=== PATIENT | female | born 1960 | race Caucasian/White ===

== ENCOUNTER → 2022-01-28 | Outpatient (CLI) | payer BC, MEDICARE ==
[~2022-01-28] VITALS: Ht 175.3 cm; Wt 113.6 kg
[~2022-01-28] MED LIST: LIDOCAINE 1% INJ 50 ML (XYLOCAINE) VIAL IJ ONE
--- NOTE | 2022-01-28 11:07 | Diagnostic Imaging Report ---
INDICATION: Right breast nodule. Patient presents for ultrasound guided core biopsy. DETAILS OF THE PROCEDURE: The patient was brought to the sonographic suite and placed on the table in the supine position. Ultrasound imaging of the right breast was performed to evaluate for an appropriate entry site. The right breast was then prepped and draped in the usual sterile fashion. A small amount of 1% lidocaine was utilized for local anesthesia. A total of four core biopsies was made of the irregular hypoechoic mass at the 10 o'clock location of the right breast 6 cm from the nipple utilizing a 14-gauge Achieve needle. A marker clip was then deployed. Hemostasis was obtained using manual compression. The patient tolerated the procedure well. IMPRESSION: Successful ultrasound guided core biopsy of the hypoechoic irregular mass at the 10 o'clock location of the right breast 6 cm from the nipple. Pathology results are currently pending. Dictated by: Dictated on workstation # [id number]
--- NOTE | 2022-01-28 11:08 | Diagnostic Imaging Report ---
INDICATION: Right breast nodule. Patient presents for ultrasound guided core biopsy. DETAILS OF THE PROCEDURE: The patient was brought to the sonographic suite and placed on the table in the supine position. Ultrasound imaging of the right breast was performed to evaluate for an appropriate entry site. The right breast was then prepped and draped in the usual sterile fashion. A small amount of 1% lidocaine was utilized for local anesthesia. A total of four core biopsies was made through the irregular, hypoechoic mass at the 9 o'clock location of the right breast 7 cm from the nipple utilizing a 14-gauge Achieve needle. A marker clip was deployed. Hemostasis was obtained using manual compression. The patient tolerated the procedure well and was sent for post procedure mammography in satisfactory condition. IMPRESSION: Successful ultrasound-guided core biopsy of the irregular mass at the 9 o'clock location of the right breast 7 cm from the nipple. Pathology results are currently pending. Dictated by: Dictated on workstation # [id number]
--- NOTE | 2022-01-28 12:29 | Diagnostic Imaging Report ---
INDICATION: Right breast masses. Patient is status post ultrasound-guided biopsy. FINDINGS: Unilateral right exaggerated CC and lateral medial views of the breast were obtained after the patient underwent an ultrasound-guided biopsy. The patient underwent biopsy at both the 10 o'clock and 9 o'clock positions. Only a single marker clip is identified on this study in the upper and outer aspect of the right breast. This marker clip represents the lesion that was reported at the 9 o'clock location. The 10 o'clock lesion does not appear to contain a marker clip. IMPRESSION: There is a marker clip in the outer right breast which appears to represent the marker clip from the 9 o'clock lesion. The 10 o'clock lesion that was biopsied does not definitely demonstrate a marker clip. Dictated by: Dictated on workstation # [id number]
== END ==
LOC: RAD 08:45
PROVIDERS: ATTEND Surgery
DX: N63.15 Unspecified lump in the right breast, overlapping quadrants (principal); N63.11 Unspecified lump in the right breast, upper outer quadrant
CPT/HCPCS: 19083; 19084; 77065; A4648; G0279

== ENCOUNTER → 2022-02-04 | Outpatient (CLI) | payer BC | LOC: PREOP 12:04 | PROVIDERS: ATTEND Surgery | DX: Z01.818 Encounter for other preprocedural examination (principal); C50.911 Malignant neoplasm of unspecified site of right female breast ==

== ENCOUNTER → 2022-02-07 | Outpatient (CLI) | payer BC ==
[~2022-02-07] MED LIST changes: +HYDR-3817 PO; -LIDOCAINE 1% INJ 50 ML (XYLOCAINE) VIAL IJ ONE; +LOSA50TA63 PO; +LUTE20TA PO; +METF500S7 PO; +MULT-593 PO
--- NOTE | 2022-02-07 17:50 | Diagnostic Imaging Report ---
INDICATION: Right-sided breast cancer. TECHNIQUE: The patient was administered 26.9 mCi technetium 99m MDP intravenously. After an incubation delay, anterior and posterior whole-body planar images are obtained. CORRELATION STUDY: None FINDINGS: There is suggestion very mild degenerative uptake but bilateral shoulder girdles, sternoclavicular joints as well as knees. There are no abnormal areas of radiotracer accumulation to suggest presence of osseous metastasis. Normal uptake by the kidneys excretions into the urinary bladder. IMPRESSION: 1. Negative appearing baseline bone scan. Dictated by: Dictated on workstation # [id number]
== END ==
LOC: CARD 10:32
PROVIDERS: ATTEND Internal Medicine Hematology & Oncology
DX: C50.911 Malignant neoplasm of unspecified site of right female breast (principal)
CPT/HCPCS: 78306; A9503

== ENCOUNTER 2022-02-12 06:24 | Day surgery (SDC) | payer BC ==
[~2022-02-12 06:24] MED LIST changes: -HYDR-3817 PO; +LACTATED RINGERS 1,000 ML IV PRN
[2022-02-12] MEDS ORDERED: HYDR-3817 PO (11:46)
== END 2022-02-12 07:00 | disposition home or self-care (01) ==
LOC: CARD 06:24
PROVIDERS: ATTEND Surgery
DX: C50.411 Malignant neoplasm of upper-outer quadrant of right female breast (principal); E66.9 Obesity, unspecified; Z68.38 Body mass index [BMI] 38.0-38.9, adult; E11.9 Type 2 diabetes mellitus without complications; Z79.84 Long term (current) use of oral hypoglycemic drugs

== ENCOUNTER 2022-02-12 10:27 | Day surgery (SDC) | payer BC ==
[~2022-02-12] VITALS: Ht 175 cm; Wt 117.8 kg
[2022-02-12] VITALS (7 sets, daily range): BP systolic 128–145; BP diastolic 67–76
[~2022-02-12 10:27] MED LIST changes: -LACTATED RINGERS 1,000 ML IV PRN
[2022-02-12] MEDS ORDERED: ceFAZolin INJECTION 2,000 MG ONE (10:31)
[2022-02-12] MEDS ORDERED: PROPOFOL INJECTION 50 ML IV ONE (10:47)
[2022-02-12] MEDS ORDERED: HEParin (CENTRAL IV FLUSH) 500 UNIT/5 ML SYR ONE (10:47)
[2022-02-12] MEDS ORDERED: BUP/EPI 0.5% 1:200,000 (MARCAINE) 10ML VIAL IJ ONE ×2 (10:47→10:48)
[2022-02-12] MEDS ORDERED: 0.9% SODIUM CHLORIDE PF INJ 20 ML VIAL ONE (10:47)
[2022-02-12] MEDS ORDERED: MIDAZOLAM 2 MG/2 ML (VERSED) VIAL ONE ×2 (10:48→11:42)
[2022-02-12] MEDS: 0.9% SODIUM CHLORIDE PF INJ 20 ML VIAL IJ ONE ×2 (10:53→12:23)
[2022-02-12] MEDS: HEParin (CENTRAL IV FLUSH) 500 UNIT/5 ML SYR IV ONE ×2 (10:53→11:55)
[2022-02-12] MEDS: BUP/EPI 0.5% 1:200,000 (SENSORCAINE) 30 ML VIAL INJ ONE ×2 (10:53→11:55)
[2022-02-12] MEDS ORDERED: ceFAZolin INJECTION 2,000 MG in NS (IVPB) 50 ML IV NR (11:00)
[2022-02-12] MEDS ORDERED: morphine INJ 10 MG/ML 1ML (SYR OR VIAL) IVP PRN ×2 (11:45)
[2022-02-12] MEDS ORDERED: oxyCODONE/APAP 5/325MG (PERCOCET 5) TABLET PO PRN (11:45)
[2022-02-12] MEDS ORDERED: ACETAMINOPHEN 325 MG TABLET PO PRN (11:45)
[2022-02-12] MEDS ORDERED: ONDANSETRON 4 MG/2 ML (SDV) Z0FRAN IVP PRN ×2 (11:45→12:45)
--- NOTE | 2022-02-12 11:45 | Progress Note-Pre Operative ---
Pre-Operative Progress Note Date of Available H&P: Feb 12, 2022 Date H&P Reviewed: Feb 12, 2022 Time H&P Reviewed: 10:30 History & Physical: No changes noted Pre-Operative Diagnosis: right breast cancer BUDDY MCPHERSON MD Feb 12, 2022 11:45
[2022-02-12] MEDS ORDERED: HYDR-3817 PO (11:46)
--- NOTE | 2022-02-12 11:47 | Discharge Inst-Surgical ---
D/C Lap Instructions-KIDO New, Converted, or Re-Newed RX: RX on Chart Follow Up Activity as tolerated May access and use port at any time. Regular Diet Symptoms to Report: Fever over 101 degree F, Nausea/Vomiting Infection Signs and Symptoms to report: Increased redness, Foul odor of wound, Increased drainage Bathing instructions: May shower Operative Area Clean/Dry; Keep incision clean/dry If any problems/questions: Contact your physician or go to Emergency Room BUDDY MCPHERSON MD Feb 12, 2022 11:47
--- NOTE | 2022-02-12 12:38 | Anesthesia-General Post-Op ---
MAC Patient Condition Mental Status/LOC: Same as Preop Cardiovascular: Satisfactory Nausea/Vomiting: Absent Respiratory: Satisfactory Pain: Controlled Complications: Absent Post Op Complications Complications None Follow Up Care/Instructions Patient Instructions None needed. Anesthesiology Discharge Order Discharge Order Patient is doing well in PACU with no complaints, stable vital signs, no apparent adverse anesthesia problems. No complications reported per nursing. BRENDAN RUTH DO Feb 12, 2022 12:38
[2022-02-12] MEDS ORDERED: morphine INJ 10 MG/ML 1ML (SYR OR VIAL) IVP ONE (12:45)
--- NOTE | 2022-02-12 12:59 | Diagnostic Imaging Report ---
INDICATION: Post op port placement FINDINGS: Left subclavian catheter tip overlies the lower SVC in good alignment. There is no pneumothorax. Lungs clear. IMPRESSION: Catheter in good position without complication or acute appearing pathology. Dictated by: Dictated on workstation # [id number]
--- NOTE | 2022-02-12 17:42 | OPERATIVE REPORT ---
DATE OF SERVICE: 02/12/2022 ATTENDING PRIMARY CARE PHYSICIAN: Petar Brown DO. PREOPERATIVE DIAGNOSIS: Right breast cancer. POSTOPERATIVE DIAGNOSIS: Right breast cancer. PROCEDURE PERFORMED: Placement of left subclavian Groshong implantable catheter under fluoroscopy. SURGEON: Buddy Mcpherson MD. ANESTHESIA: Monitored anesthesia care with local. ESTIMATED BLOOD LOSS: Minimal. FINDINGS: Catheter tip at superior vena cava - right atrial junction. DISPOSITION: The patient tolerated the procedure well. INDICATIONS FOR PROCEDURE: The patient is a 62-year-old female, who was found to have an abnormal mammogram. There were two areas of suspicion of the right breast on ultrasound and these were identified on mammography as well. There was one lesion at the 12 o'clock position 1.6 x 3.3 mm in size and another area at the 10 o'clock position, 2.2 x 1.7 cm in size. There was also a slightly enlarged lymph node as well. The patient did undergo previous biopsies, which was found to be an invasive ductal cancer, ER/OK positive, HER-2 negative; however, a high Ki-67 index. The patient will need surgery; however, will also require adjuvant chemotherapy and will require a Groshong implantable catheter. DESCRIPTION OF PROCEDURE: The patient was brought to the operating room and laid supine on the table. After adequate IV pain and sedative medications and monitored anesthesia care, the chest and neck were prepped and draped in a standard surgical fashion. A 1% lidocaine with epinephrine was used to anesthetize the left subclavian region. The left subclavian vein was then cannulated with drawing of venous blood and the guidewire was then inserted under fluoroscopy. The was needle removed and a skin incision was made using a 15 blade. The dilator and sheath were then introduced over the guidewire. The dilator and the guidewire were then removed and the Groshong implantable catheter was placed until the catheter tip was at the superior vena caval - right atrial junction under fluoroscopy. The sheath was then removed. The inner wire within the catheter was then removed. The catheter cut down to size and port placed onto the catheter. The chest reservoir was then created by extending the skin incision laterally using a 15 blade. A plane was then created between the subcutaneous fat as well as the anterior pectoralis fascia using blunt dissection as well as electrocautery. Good hemostasis was observed. The port was placed into the reservoir and sutured to the anterior pectoralis fascia using interrupted 3-0 Vicryl sutures. The subcutaneous tissue was then reapproximated with the same suture in an interrupted manner and the skin was closed using 4-0 Monocryl running subcuticular suture. Wound was then cleaned and covered with Dermabond. The port was accessed with a Ferrer needle and venous blood drawn and heparinized saline pushed in without any resistance. The patient tolerated the procedure well. We will get a post-procedure chest x-ray. Once confirmation of placement, the port may be accessed and used any time. Job ID: [id number] DocumentID: [id number] Dictated Date: 02/12/2022 12:30:58 Ball Winder Date: 02/12/2022 15:11:28 Dictated By: BUDDY MCPHERSON MD
--- NOTE | 2022-02-12 18:40 | Diagnostic Imaging Report ---
INDICATION: Port placement. COMPARISON: None Total fluoroscopy time: 10 seconds Total number of fluoroscopic images saved: 2 FINDINGS: Multiple intraoperative image intensifier views of the chest were obtained during Port-A-Cath placement. Images provided show a left subclavian approach. Central tip of the catheter is obscured. Evaluation for pneumothorax is suboptimal given fluoroscopic modality. Please note, interpreting radiologist was not present during the procedure. IMPRESSION: 1. Fluoroscopic guidance provided intraoperatively as above. Dictated by: Dictated on workstation # [id number]
== END 2022-02-12 13:42 | disposition home or self-care (01) ==
LOC: SDC 10:27
PROVIDERS: ATTEND Surgery
DX: C50.411 Malignant neoplasm of upper-outer quadrant of right female breast (principal); E66.9 Obesity, unspecified; Z68.38 Body mass index [BMI] 38.0-38.9, adult; E11.9 Type 2 diabetes mellitus without complications; Z79.84 Long term (current) use of oral hypoglycemic drugs
CPT/HCPCS: 36561; 71045; 76000; 82947; C1788

== ENCOUNTER → 2022-02-22 | Outpatient (CLI) | payer BC ==
[~2022-02-22] MED LIST changes: +GADOTERATE 0.5 MMOL/ML (CLARISCAN) 20 ML VIAL IV ONE; +HYDR-3817 PO
--- NOTE | 2022-02-22 14:51 | Diagnostic Imaging Report ---
EXAMINATION: MRI BREAST BILAT W W/O CON INDICATION: Recently diagnosed right breast cancer. Evaluate extent of disease. TECHNIQUE: Utilizing a 1.5 Vivian magnet, the patient was placed in the prone position with a dedicated breast coil in place. Axial STIR, T2 fat sat, T1 and T1 fat-sat images are obtained without contrast. Postcontrast high-resolution dynamic images are also obtained. Pre and post contrasted images are then evaluated with PolyPid for evaluation of possible angiogenesis. 20 mL of Clariscan gadolinium contrast material was administered intravenously. COMPARISON: Screening mammogram performed on 01/04/2022, diagnostic mammogram and ultrasound performed on 01/18/2022 and images obtained during ultrasound-guided biopsy of the right breast performed on 01/28/2022. FINDINGS: RIGHT BREAST: The breast is composed of scattered fibroglandular tissue. There is minimal background parenchymal enhancement. Near 12 o'clock in the posterior depth breast approximately 12 cm posterior to the nipple, there is a 1.5 x 1.7 x 1.0 irregular enhancing mass with spiculated margins. Just inferior and lateral to this near 10 o'clock approximately 10 cm posterior to the nipple, there is a 1.3 x 1.8 x 0.8 cm irregular enhancing mass with spiculated margins. The 10 o'clock mass demonstrates central susceptibility from previously placed biopsy marker clip. The 12 o'clock mass demonstrates persistent-type enhancement, with large areas of washout, while the 10 o'clock mass demonstrates predominantly persistent-type enhancement on kinetic analysis. There is no other suspicious mass or non-mass enhancement. There is no axillary or internal mammary adenopathy. LEFT BREAST: The breast is composed of scattered fibroglandular tissue. There is minimal background parenchymal enhancement. There is no suspicious mass or non-mass enhancement. There is no axillary or internal mammary adenopathy. IMPRESSION: Irregular enhancing masses at 10 and 12 o'clock in the right breast are compatible with known, multifocal malignancy. There is no evidence of malignancy in the right breast and no axillary or internal mammary adenopathy. BI-RADS Category 6: Known Biopsy-Proven Malignancy Dictated by: Dictated on workstation # [id number]
== END ==
LOC: CARD 08:00
PROVIDERS: ATTEND Internal Medicine Hematology & Oncology
DX: C50.911 Malignant neoplasm of unspecified site of right female breast (principal)
CPT/HCPCS: 93306; C8908; 77049

== ENCOUNTER 2022-08-05 09:12 | Outpatient (RCR) | payer BC ==
[~2022-08-05 09:12] MED LIST changes: -GADOTERATE 0.5 MMOL/ML (CLARISCAN) 20 ML VIAL IV ONE
== END 2022-08-06 | disposition home or self-care (01) ==
LOC: ONC 09:12
PROVIDERS: ATTEND Radiology Radiation Oncology
DX: C50.411 Malignant neoplasm of upper-outer quadrant of right female breast (principal)
CPT/HCPCS: 99205

== ENCOUNTER → 2022-09-06 | Outpatient (RCR) | payer BC | END | disposition home or self-care (01) | LOC: ONC 08-19 08:05 | PROVIDERS: ATTEND Radiology Radiation Oncology | DX: Z51.0 Encounter for antineoplastic radiation therapy (principal); C50.911 Malignant neoplasm of unspecified site of right female breast | CPT/HCPCS: 77290; 77295; 77300; 77334 ×2; G0463; 77280; 77332; 77336; 77417; 77470; 99212 ==

== ENCOUNTER 2022-10-04 07:50 | Outpatient (RCR) | payer BC | END 2022-10-06 | disposition home or self-care (01) | LOC: ONC 07:50 | PROVIDERS: ATTEND Radiology Radiation Oncology | DX: Z51.0 Encounter for antineoplastic radiation therapy (principal); C50.911 Malignant neoplasm of unspecified site of right female breast | CPT/HCPCS: 77290; 77300; 77332; 77334; 77336; 77417 ==

== ENCOUNTER 2022-10-08 16:45 | Outpatient (RCR) | payer BC | END 2022-11-06 | disposition home or self-care (01) | LOC: ONC 16:45 | PROVIDERS: ATTEND Radiology Radiation Oncology | DX: Z51.0 Encounter for antineoplastic radiation therapy (principal); C50.411 Malignant neoplasm of upper-outer quadrant of right female breast | CPT/HCPCS: 77336 ==

== ENCOUNTER 2022-11-14 08:40 | Outpatient (RCR) | payer BC | END 2022-12-06 | disposition home or self-care (01) | LOC: ONC 08:40 | PROVIDERS: ATTEND Radiology Radiation Oncology | DX: C50.411 Malignant neoplasm of upper-outer quadrant of right female breast (principal) | CPT/HCPCS: 99213 ==